=== PATIENT | male | born 1955 | race African-American/Black ===

== ENCOUNTER 2017-12-20 08:51 | Inpatient (IN) ==
--- NOTE | 2017-12-20 09:09 | ED ---
HPI General Chief Complaint: Chest Pain Stated Complaint: cardiac complaint Time Seen by Provider: 12/20/17 09:01 Source: patient Mode of arrival: ambulatory Limitations: no limitations History of Present Illness HPI narrative: 62-year-old male patient with history of hypertension, diabetes, CAD, cocaine use, presents to the ER today because he states that he has been using cocaine with marijuana and started having chest pain since yesterday. He was seen at the [facility], was given aspirin and nitroglycerin was given by EMS. He states the pain is now an 8 out of 10. He also complains of some shortness of breath. He denies any fevers, vomiting, or other symptoms. Related Data Home Medications Medication Instructions Recorded Confirmed atorvastatin 40 mg PO DAILY 12/20/17 12/20/17 lisinopril 10 mg PO DAILY 12/20/17 12/20/17 nifedipine 60 mg PO DAILY 12/20/17 12/20/17 quetiapine [Seroquel] 200 mg PO HS 12/20/17 12/20/17 Allergies Allergy/AdvReac Type Severity Reaction Status Date / Time No Known Allergies Allergy Verified 12/20/17 09:02 Review of Systems ROS: all other systems reviewed are negative PMFSH History History Provided By: Patient Medical History Medical History Bipolar disorder (Acute) CAD (coronary artery disease) (Acute) Chest pain (Acute) Depression (Acute) GERD (gastroesophageal reflux disease) (Acute) Hypertension (Acute) PTSD (post-traumatic stress disorder) (Acute) Surgical History Surgical History History of cholecystectomy (Acute) Social History Social History Substance History: Active Abuse Smoking Status: Heavy tobacco smoker Tobacco Type: Cigarettes How Often Do You Have a Drink Containing Alcohol: 4 or more times a week Recent Travel in [place] within the Last 8 Weeks: No Recent Out of Country Travel within the Last 8 Weeks: No Exam Narrative Exam Narrative: GENERAL: Well-developed elderly -Irish male patient currently in moderate distress. Awake and oriented x3. SKIN: Focused skin assessment warm/dry. HEAD: Atraumatic. Normocephalic. EYES: Pupils equal and round. No scleral icterus. No injection or drainage. ENT: No nasal bleeding or discharge. Mucous membranes pink and moist. NECK: Trachea midline. No JVD. CARDIOVASCULAR: Regular rate and rhythm. No murmur appreciated. RESPIRATORY: No accessory muscle use. Clear to auscultation. Breath sounds equal bilaterally. GASTROINTESTINAL: Abdomen soft, non-tender, nondistended. Hepatic and splenic margins not palpable. MUSCULOSKELETAL: No obvious deformities. No clubbing. No cyanosis. No edema. NEUROLOGICAL: Awake and alert. No obvious cranial nerve deficits. Motor grossly within normal limits. Normal speech. PSYCHIATRIC: Appropriate mood and affect; insight and judgment normal. Course Initial Documented Vital Signs Temperature 98.7 F 12/20/17 09:00 Pulse Rate 62 12/20/17 09:00 Respiratory Rate 18 12/20/17 09:00 Blood Pressure 182/109 H 12/20/17 09:00 Pulse Oximetry 98 12/20/17 09:00 Last Documented Vital Signs Temperature 98.7 F 12/20/17 09:00 Pulse Rate 66 12/20/17 11:21 Respiratory Rate 18 12/20/17 11:21 Blood Pressure 174/91 H 12/20/17 11:21 Pulse Oximetry 97 12/20/17 11:21 Medical Decision Making MDM Narrative Medical decision making narrative: Patient is fairly hypertensive. He admits to having used cocaine today. And at this point, his EKG is showing ST depressions notable in V3 through V6. He was given aspirin at the [facility] and nitroglycerin has already been given. His lab work and it shows that his troponin is elevated as well. At this point, heparin has been ordered for the patient. However, the patient became fairly upset in the ER and wanted to eat, I had told him that I was trying to get in contact with the gold leaf layer and that he should delay eating until we find out whether the gold leaf layer wants to do a catheterization on him. He decided at that point that he wanted to leave AGAINST MEDICAL ADVICE. He actually left the ER room, and had to sit down in triage because his chest pains had gotten worse. He was brought back into the room, but then started eating a turkey sandwich, despite having been told not to eat yet since this could cause delays in his care. At this point, case was discussed with Dr. mcarthur who states that he would treat him with heparin and manage the patient medically. The plan at this point would be to admit the patient for further treatment of his NC. Case is discussed with family practice resident service for admission. Medical Screen Exam Complete: Yes Emergency Medical Condition: Yes Differential Diagnosis Differential Diagnosis: ACS versus dysrhythmias versus hypertensive urgency versus cocaine chest pain Lab Data Lab results reviewed: Yes I reviewed the patient's lab results. Result diagrams: 12/20/17 09:15 12/20/17 09:15 Lab Results 12/20/17 12/20/17 Range/Units 09:15 09:15 WBC 6.0 (4.0-11.0) th/mm3 RBC 5.56 (4.50-5.90) mil/mm3 Hgb 15.3 (13.0-17.0) gm/dL Hct 46.7 (39.0-51.0) % MCV 84.1 (80.0-100.0) fL MCH 27.6 (27.0-34.0) pg MCHC 32.8 (32.0-36.0) % RDW 14.4 (11.6-17.2) % Plt Count 249 (150-450) th/mm3 MPV 8.6 (7.0-11.0) fL Neut % (Auto) 59.1 (16.0-70.0) % Lymph % (Auto) 25.0 (9.0-44.0) % [place] % (Auto) 10.8 H (0.0-8.0) % Eos % (Auto) 4.1 H (0.0-4.0) % Baso % (Auto) 1.0 (0.0-2.0) % Neut # (Auto) 3.5 (1.8-7.7) th/mm3 Lymph # (Auto) 1.5 (1.0-4.8) th/mm3 [place] # (Auto) 0.6 (0.0-0.9) th/mm3 Eos # (Auto) 0.2 (0.0-0.4) th/mm3 Baso # (Auto) 0.1 (0.0-0.2) th/mm3 WBC Differential . Differential Comment Auto diff final Sodium 143 (136-145) meq/L Potassium 4.0 (3.5-5.1) meq/L Chloride 108 H (98-107) meq/L Carbon Dioxide 29.4 (21.0-32.0) meq/L Anion Gap 6 (5-15) meq/L BUN 9 (7-18) mg/dL Creatinine 1.09 (0.60-1.30) mg/dL Estimated GFR 69 L (>89) mL/min Random Glucose 95 (74-106) mg/dL Calcium 8.5 (8.5-10.1) mg/dL Total Bilirubin 0.3 (0.2-1.0) mg/dL AST 26 (15-37) U/L ALT 27 (12-78) U/L Alkaline Phosphatase 79 (45-117) U/L Troponin I 1.79 H* (0.02-0.05) ng/mL Total Protein 7.0 (6.4-8.2) g/dL Albumin 3.2 L (3.4-5.0) g/dL Imaging Data Attestation: I personally reviewed and interpreted this imaging study as follows : Radiologist's impression: Chest X-Ray 12/20/17 09:03 CONCLUSION: Negative examination. Discharge Plan Discharge Disposition Patient Disposition: 30 Still Patient Discharge Condition Condition: Stable Discharge Details Anticipated Discharge Date: 12/20/17 Diagnosis: Non-ST elevated myocardial infarction (non-STEMI) Physicians Team ED Provider: Robert Rodriguez Rxs /Orders / Referrals /Forms Prescriptions: No Action atorvastatin 40 mg Tablet 40 mg PO DAILY RF: 0 quetiapine [Seroquel] 200 mg Tablet 200 mg PO HS RF: 0 lisinopril 10 mg Tablet 10 mg PO DAILY RF: 0 nifedipine 60 mg Tablet Extended Release 60 mg PO DAILY RF: 0 Discharge Instructions Patient Printed Instructions: Chest Pain (ED) Status ED Status: With Doctor
[2017-12-20 09:38] LABS: Baso # (Auto) 0.1 th/mm3 (0.0-0.2); Eos # (Auto) 0.2 th/mm3 (0.0-0.4); Eos % (Auto) 4.1 % (0.0-4.0); Hematocrit 46.7 % (39.0-51.0); Hemoglobin 15.3 gm/dL (13.0-17.0); Lymph # (Auto) 1.5 th/mm3 (1.0-4.8); Mean Corpuscular HGB Conc 32.8 % (32.0-36.0); Mean Corpuscular Hemoglobin 27.6 pg (27.0-34.0); Mean Corpuscular Volume 84.1 fL (80.0-100.0); Mean Platelet Volume 8.6 fL (7.0-11.0); Mono # (Auto) 0.6 th/mm3 (0.0-0.9); Mono % (Auto) 10.8 % (0.0-8.0); Neut # (Auto) 3.5 th/mm3 (1.8-7.7); Neut % (Auto) 59.1 % (16.0-70.0); Platelet Count 249 th/mm3 (150-450); Red Blood Count 5.56 mil/mm3 (4.50-5.90); Red Cell Distribution Width 14.4 % (11.6-17.2)
--- NOTE | 2017-12-20 09:44 | XR ---
EXAM DATE: 12/20/2017 9:30 AM EST AGE/SEX: 62 years / Male INDICATIONS: Chest pain. CLINICAL DATA: This is the patient's initial encounter. Patient reports that signs and symptoms have been present for 1 day and indicates a pain score of 6/10. MEDICAL/SURGICAL HISTORY: Chronic obstructive pulmonary disease. Myocardial infarction. None. COMPARISON: No prior exams available for comparison. FINDINGS: A single AP view of the chest demonstrates the lungs to be symmetrically aerated without evidence of mass, infiltrate or effusion. The cardiomediastinal contours are unremarkable. Osseous structures a re intact. CONCLUSION: Negative examination. Electronically signed by: Elmer Raymond MD 12/20/2017 9:42 AM EST
[2017-12-20 09:57] LABS: Alanine Aminotransferase 27 U/L (12-78)
[2017-12-20 10:07] LABS: Albumin 3.2 g/dL (3.4-5.0); Alkaline Phosphatase 79 U/L (45-117); Anion Gap 6 meq/L (5-15); Aspartate Aminotransferase 26 U/L (15-37); Blood Urea Nitrogen 9 mg/dL (7-18); Calcium 8.5 mg/dL (8.5-10.1); Carbon Dioxide 29.4 meq/L (21.0-32.0); Chloride 108 meq/L (98-107); Glomerular Filtration Rate 69 mL/min (>89); Glucose,Random 95 mg/dL (74-106); Sodium 143 meq/L (136-145)
[2017-12-20 10:10] LABS: Troponin I 1.79 ng/mL (0.02-0.05)
[2017-12-20] MEDS ORDERED: Heparin 10,000 UNITS/10 ML Vial (for IV use) IV.PUSH STA (10:28)
[2017-12-20 12:02] LABS: INR 1.1 Ratio
[2017-12-20] MEDS: LORazepam 1 MG Tablet PO SCH ×2 (12:42→23:08)
[2017-12-20] MEDS: Heparin Drip 25,000 UNIT/250 ML BAG IV.CONT PRN (12:43)
[2017-12-20] MEDS: Lisinopril 10 MG Tablet PO SCH (12:43)
--- NOTE | 2017-12-20 13:53 | P.HPFP ---
History of Present Illness Primary Care Physician: Physician [facility] <Marc Wong L - 12/21/17 22:41> [facility]ician [facility] <Angelic Blackwell - 12/20/17 19:13> Chief Complaint: Chest Pain <Jaquan Blackwelloscar Vigil - 12/20/17 19:13> History of Present Illness: 62 year old male PMH drug use (alcohol, cocaine, THC ), CAD, HTN, bipolar, PTSD presents with chest pain. He said the chest pain started yesterday after drinking alcohol, using marijuana, and using cocaine. He said the chest pain was pressure under both breasts that would come and go lasting hours at a time. He noticed the pain increasing when he participated in sexual intercourse. Chest pain continued throughout the evening. He described the chest pain as a pressure that radiated into his neck and shoulder. He had some shortness of breath and nausea. He went to the DC was given aspirin and nitroglycerin and then transported here by EMS today. He has had chest pain in the past 3 years ago when he had an KS but no procedures were done. He denies any vomiting or fevers. Current chest pain 8 out of 10. Noticed increased sweating. He uses cocaine regularly drinks a quart of beer daily as well as wine and vodka. He smokes 5 cigarettes a day and uses marijuana regularly. He used to do acid, heroin, PCP, purple haze but denies using any of these at this time. He said last time he used heroin was 6 months ago. He is living in his car. He is sexually active with multiple partners and does not use condoms. He has had chlamydia and herpes in the past. He recently was tested for HIV and was negative. Past medical history: KS 3 years ago, hypertension, CAD, GERD, bipolar, PTSD, cocaine use, alcohol use Surgical history: Cholecystectomy Family medical history: None Allergies: None Medications: Nifedipine 60 mg, lisinopril 10 mg, atorvastatin 40 mg, Seroquel 200 mg (patient says he does not take these medications every day but takes them intermittently) ED consult to cardiology who diagnosed patient with an NSTEMI and started on heparin. Patient went to sign AMA papers because he wanted to eat food, left to get a turkey sandwich, and then returned. Cardiology recommended medical management and no procedure at this time given cocaine history and patient noncompliance. At 4 PM today patient was complaining of increased chest pain 5 out of 10 and increasing shortness of breath. Medical team went to bedside to reassess patient. He said at some point he thinks he was told he had COPD. He said his chest pain is continued but decreased now a 5 out of 10 but his shortness of breath has increased he is stating on 4 L nasal cannula at 98%. Repeat EKG was unchanged from admission showing ST depressions and aVL V3 through V6. ABG troponin and chest x-ray were ordered. Duo nebs were administered and patient' s shortness of breath improved patient was having conversations and laughing with nursing staff. <Angelic Blackwell - 12/20/17 19:58> - Diagnosis (1) Non-ST elevated myocardial infarction (non-STEMI) (2) Drowsiness (3) Shortness of breath (4) Hypertension (5) Bipolar 1 disorder (6) Substance abuse (7) Nutrition, metabolism, and development symptoms <Marc Wong - 12/21/17 22:41> (1) Non-ST elevated myocardial infarction (non-STEMI) (2) Shortness of breath (3) Hypertension (4) Bipolar 1 disorder (5) Substance abuse (6) Nutrition, metabolism, and development symptoms <Angelic Blackwell - 12/20/17 19:32> Inpatient Certification: I certify that the inpatient services were ordered in accordance with Medicare regulations governing the order. This includes certification that hospital inpatient services are reasonable and necessary and in the case of services not specified as inpatient-only under 42 CFR 419.22(n), that they are appropriately provided as inpatient services in accordance to with the 2-midnight benchmark under 43 CFR 412.3(e) <Marc Wong - 12/21/17 22:41> I certify that the inpatient services were ordered in accordance with Medicare regulations governing the order. This includes certification that hospital inpatient services are reasonable and necessary and in the case of services not specified as inpatient-only under 42 CFR 419.22(n), that they are appropriately provided as inpatient services in accordance to with the 2-midnight benchmark under 43 CFR 412.3(e) <Angelic Blackwell - 12/20/17 13:53> Estimated Total Length of Stay (Days): 3 <Angelic Blackwell 12/20/17 13:53> Plans for Post Hospital Care: Home <Angelic Blackwell 12/20/17 13:53> Review of Systems Constitutional: Reports chills, Reports fatigue, Denies fever(s) <Angelic Blackwell 12/20/17 17:28> Eyes: Denies change in vision <Angelic Blackwell 12/20/17 17:28> Ears, Nose, Mouth, and Throat: Denies sore throat <RishiAngelic Vigil 12/20/17 17:28> Cardiovascular: Reports chest pain, Reports leg swelling, Reports radiating jaw , neck or arm pain, Reports shortness of breath, Reports shortness of breath with activity, Denies rapid, pounding, or irregular heartbeat <RishiAngelic Vigil Ihsan 12/20/17 17:28> Respiratory: Reports shortness of breath <Angelic Blackwell Ihsan 12/20/17 17:28> Gastrointestinal: Reports nausea, Denies loose stools, Denies vomiting <Rishi Angelic Vigil Ihsan 12/20/17 17:28> Genitourinary: Reports erectile dysfunction, Denies urinary frequency <Angelic Blackwell 12/20/17 17:28> Musculoskeletal: Denies body aches <Angelic Blackwell 12/20/17 17:28> Skin/Breast: Denies rash <RishiAngelic Musa 12/20/17 17:28> Neurologic: Denies loss of vision <Angelic Blackwell 12/20/17 17:28> Psychiatric: Reports anxiety, Denies thoughts of hurting/killing yourself < RishiAngelic Musa 12/20/17 17:28> Endocrine: Reports excessive sweating <Angelic Blackwell 12/20/17 17:28> Hematologic/Lymphatic: Denies easy bleeding <RishiAngelic Musa 12/20/17 17:28> Allergic/Immunologic: Denies hives <RishiAngelic 12/20/17 17:28> PMFSH - History History Provided By: Patient <Angelic Blackwell Ihsan 12/20/17 13:53> - Medical History Medical History: Medical History (Last Reviewed 12/20/17 @ 09:08 by Robert Rodriguez MD) Bipolar disorder CAD (coronary artery disease) Chest pain Depression GERD (gastroesophageal reflux disease) Hypertension PTSD (post-traumatic stress disorder) <Marc Wong - 12/21/17 22:41> Medical History (Last Reviewed 12/20/17 @ 09:08 by Robert Rodriguez MD) Bipolar disorder CAD (coronary artery disease) Chest pain Depression GERD (gastroesophageal reflux disease) Hypertension PTSD (post-traumatic stress disorder) <Angelic Blackwell 12/20/17 13:53> - Surgical History Surgical History: Surgical History (Last Reviewed 12/20/17 @ 09:08 by Robert Rodriguez MD) History of cholecystectomy <Marc Wong - 12/21/17 22:41> Surgical History (Last Reviewed 12/20/17 @ 09:08 by Robert Rodriguez MD) History of cholecystectomy <Angelic Blackwell 12/20/17 13:53> - Tobacco History Tobacco Use In Past 30 Days: Yes <Angelic Blackwell 12/20/17 13:53> Smoking Status: Heavy tobacco smoker <Angelic Blackwell 12/20/17 13:53> Tobacco Type: Cigarettes <Angelic Blackwell 12/20/17 13:53> - Alcohol History How Often Do You Have a Drink Containing Alcohol: 4 or more times a week < Angelic Blackwell 12/20/17 13:53> - Substance Use History Substance History: Active Abuse <Angelic Blackwell 12/20/17 13:53> - Substance Use Type Crack/Cocaine Status: Active <Angelic Blackwell 12/20/17 13:53> Route Used: Inhalation <Angelic Blackwell 12/20/17 13:53> Frequency: daily <Angelic Blackwell 12/20/17 13:53> Marijuana Status: Active <Angelic Blackwell 12/20/17 13:53> Route Used: By Mouth <Angelic Blackwell 12/20/17 13:53> Frequency: daily <Angelic Blackwell 12/20/17 13:53> - Travel History Recent Travel in the [place] Within the Last 8 Weeks: No <Angelic Blackwell 13:53> Recent Travel Out of the Country Within the Last 8 Weeks: No <Angelic Blackwell 12/20/17 13:53> - Immunization History Tetanus Immunization: Unsure <RishiAngelic Vigil - 12/20/17 13:53> Medications and Allergies Allergies Allergy/AdvReac Type Severity Reaction Status Date / Time No Known Allergies Allergy Verified 12/20/17 09:02 <Marc Wong - 12/21/17 22:41> Home Medications Medication Instructions Recorded Confirmed Type atorvastatin 40 mg PO DAILY 12/20/17 12/20/17 History lisinopril 10 mg PO DAILY 12/20/17 12/20/17 History nifedipine 60 mg PO DAILY 12/20/17 12/20/17 History quetiapine [Seroquel] 200 mg PO HS 12/20/17 12/20/17 History <Marc Wong - 12/21/17 22:41> Active Medications: Active Medications Al Hydroxide/Mg Hydroxide (Milk Of Ketty Liq) 30 ml PO Q12H PRN PRN Reason: Mild Constipation Albuterol (Duoneb Neb ([facility])) 1 ampul NEB Q4HR NEB [facility] Last Admin: 12/21/17 15:39 Dose: 1 ampul Aspirin (Aspirin Chew) 81 mg PO DAILY [facility] Last Admin: 12/21/17 08:23 Dose: 81 mg Atorvastatin Calcium (Lipitor) 80 mg PO DAILY [facility] Last Admin: 12/21/17 08:22 Dose: 80 mg Clonidine HCl (Catapres) 0.1 mg PO Q6H PRN PRN Reason: SEE LABEL COMMENTS Last Admin: 12/21/17 10:21 Dose: 0.1 mg Flumazenil (Romazecon Inj) 0.2 mg IV.PUSH Q1M PRN PRN Reason: OVERSEDATION Heparin Sodium/Dextrose (Heparin/D5w 25,000 U/250 Ml) 25,000 unit in 250 mls @ 0 mls/hr IV.CONT TITRATE PRN; Protocol PRN Reason: Per Protocol Last Admin: 12/21/17 13:33 Dose: 1,200 units/hr, 12 mls/hr Lisinopril (Prinivil) 10 mg PO DAILY [facility] Last Admin: 12/21/17 08:23 Dose: 10 mg Morphine Sulfate (Morphine Inj) 2 mg IV.PUSH Q4H PRN PRN Reason: PAIN SCALE 1 TO 10 Nifedipine (Procardia Xl) 60 mg PO DAILY [facility] Last Admin: 12/21/17 08:23 Dose: 60 mg Nitroglycerin (Nitrostat Sl) 0.4 mg SL Q4HR PRN PRN Reason: CHEST PAIN Potassium Chloride (K-Dur) 20 meq PO BID [facility] Last Admin: 12/21/17 08:23 Dose: 20 meq Senna/Docusate Sodium (Kiesha-Colace) 1 tab PO BID [facility] Last Admin: 12/21/17 08:24 Dose: Not Given Sodium Chloride (Ns Flush) 2 ml IV.FLUSH BID [facility] Last Admin: 12/21/17 08:23 Dose: 2 ml Sodium Chloride (Ns Flush) 2 ml IV.FLUSH PRN PRN PRN Reason: FLUSH AFTER USING IV ACCESS Ticagrelor (Brilinta) 90 mg PO BID [facility] <Marc Wong L - 12/21/17 22:41> Active Medications Al Hydroxide/Mg Hydroxide (Milk Of Magnerich Liq) 30 ml PO Q12H PRN PRN Reason: Mild Constipation Aspirin (Aspirin Chew) 81 mg PO DAILY [facility] Atorvastatin Calcium (Lipitor) 80 mg PO DAILY [facility] Heparin Sodium/Dextrose (Heparin/D5w 25,000 U/250 Ml) 25,000 unit in 250 mls @ 0 mls/hr IV.CONT TITRATE PRN; Protocol PRN Reason: Per Protocol Last Admin: 12/20/17 12:43 Dose: 1,000 units/hr, 10 mls/hr Lisinopril (Prinivil) 10 mg PO DAILY [facility] Last Admin: 12/20/17 12:43 Dose: 10 mg Lorazepam (Ativan) 1 mg PO Q6H [facility] Last Admin: 12/20/17 12:42 Dose: 1 mg Lorazepam (Ativan) 1 mg PO Q4HR PRN PRN Reason: Acute Pain 1-10 Nifedipine (Procardia Xl) 60 mg PO DAILY [facility] Nitroglycerin (Nitro-Bid 2% Oint) 1 inch TOPICAL Q6HR [facility] Quetiapine Fumarate (Seroquel) 200 mg PO HS [facility] Senna/Docusate Sodium (Kiesha-Colace) 1 tab PO BID [facility] Sennosides (Senokot) 17.2 mg PO Q12H PRN PRN Reason: Moderate Constipation Sodium Chloride (Ns Flush) 2 ml IV.FLUSH UNSCH PRN PRN Reason: FLUSH AFTER USING IV ACCESS Ticagrelor (Brilinta) 90 mg PO BID [facility] <Angelic Blackwell C - 12/20/17 13:53> Exam Vital signs: Vital Signs 12/21/17 00:00 12/21/17 00:48 12/21/17 04:00 Temperature 98.0 F 97.8 F Pulse Rate 62 61 55 L Respiratory Rate 25 H 18 27 H Blood Pressure 146/97 H 119/79 Pulse Oximetry 12/21/17 05:02 12/21/17 08:00 12/21/17 08:07 Temperature 98.1 F Pulse Rate 59 L 63 63 Respiratory Rate 18 33 H 16 Blood Pressure 155/102 H Pulse Oximetry 96 12/21/17 09:00 12/21/17 12:00 12/21/17 15:39 Temperature 98.6 F Pulse Rate 63 63 75 Respiratory Rate 30 H 16 Blood Pressure 133/75 Pulse Oximetry 95 12/21/17 16:00 12/21/17 17:00 12/21/17 18:00 Temperature 98.6 F Pulse Rate 70 82 60 Respiratory Rate 18 Blood Pressure 158/70 H Pulse Oximetry 96 12/21/17 19:00 Temperature Pulse Rate 84 Respiratory Rate 20 Blood Pressure Pulse Oximetry Intake & Output 12/21/17 12/21/17 12/22/17 06:59 18:59 06:59 Intake Total 480 / 480 250 / 250 Output Total 800 / 800 Balance -320 / -320 250 / 250 Weight 118.5 kg Intake: IV 250 / 250 Heparin/D5W 25,000 U/250 mL 25, 250 / 250 000 unit In 250 ml @ Per Protocol IV.CONT TITRATE PRN Rx #:[id number] Oral 480 / 480 Output: Urine 800 / 800 Other: # Voids 4 <Marc Wong L - 12/21/17 22:41> Vital Signs 12/20/17 09:00 12/20/17 09:02 12/20/17 09:05 Temperature 98.7 F Pulse Rate 62 66 Respiratory Rate 18 18 Blood Pressure 182/109 H 170/100 H Pulse Oximetry 98 97 96 12/20/17 09:06 12/20/17 11:21 Temperature Pulse Rate 62 66 Respiratory Rate 18 Blood Pressure 174/91 H Pulse Oximetry 96 97 Intake & Output 12/19/17 12/20/17 12/20/17 18:59 06:59 18:59 Weight 117.934 kg <Angelic Blackwell C - 12/20/17 13:53> Narrative: GENERAL: SKIN: Warm and dry. HEAD: Atraumatic. Normocephalic. EYES: Pupils equal and round. No scleral icterus. No injection or drainage. ENT: No nasal bleeding or discharge. Mucous membranes pink and moist. Teeth discolored and extensive plaque. No erythema of throat. NECK: Trachea midline. No JVD. CARDIOVASCULAR: Bradycardic. Normal rhythm. Chest not tender to palpation RESPIRATORY: No accessory muscle use. Clear to auscultation. Breath sounds equal bilaterally. Patient on 2 L of nasal cannula at 98% GASTROINTESTINAL: Abdomen soft, non-tender, nondistended. Hepatic and splenic margins not palpable. MUSCULOSKELETAL: Extremities without clubbing, cyanosis, or edema. No obvious deformities. NEUROLOGICAL: Awake and alert. No obvious cranial nerve deficits. Motor grossly within normal limits. Five out of 5 muscle strength in the arms and legs. Normal speech. PSYCHIATRIC: Appropriate mood and affect; insight and judgment normal. Tangential speech. Somewhat pressured. <Angelic Blackwell C - 12/20/17 19:58> Results - Labs Result diagrams: 12/21/17 04:19 12/21/17 04:19 <Marc Wong - 12/21/17 22:41> Abnormal lab results 12/20/17 12/21/17 12/21/17 Range/Units 23:30 04:19 04:19 MCH 26.9 L (27.0-34.0) pg MCHC 31.8 L (32.0-36.0) % Lynn % (Auto) 10.8 H (0.0-8.0) % APTT (23.4-31.7) sec Potassium 3.4 L (3.5-5.1) meq/L Troponin I 1.77 H* (0.02-0.05) ng/mL Urine Cocaine Screen Pos H (Neg) 12/21/17 12/21/17 12/21/17 Range/Units 04:19 12:34 19:32 MCH (27.0-34.0) pg MCHC (32.0-36.0) % Lynn % (Auto) (0.0-8.0) % APTT 39.2 H 36.1 H 33.3 H (23.4-31.7) sec Potassium (3.5-5.1) meq/L Troponin I (0.02-0.05) ng/mL Urine Cocaine Screen (Neg) Short CBC 12/21/17 Range/Units 04:19 WBC 5.2 (4.0-11.0) th/mm3 Hgb 15.2 (13.0-17.0) gm/dL Hct 47.8 (39.0-51.0) % Plt Count 233 (150-450) th/mm3 BMP 12/21/17 04:19 Sodium 144 Potassium 3.4 L Chloride 107 Carbon Dioxide 30.3 BUN 10 Creatinine 0.98 Calcium 8.8 Cardiac Enzymes 12/21/17 Range/Units 04:19 Troponin I 1.77 H* (0.02-0.05) ng/mL <Young,Marc L - 12/21/17 22:41> Abnormal lab results 12/20/17 12/20/17 Range/Units 09:15 09:15 Lynn % (Auto) 10.8 H (0.0-8.0) % Eos % (Auto) 4.1 H (0.0-4.0) % Chloride 108 H (98-107) meq/L Estimated GFR 69 L (>89) mL/min Troponin I 1.79 H* (0.02-0.05) ng/mL Albumin 3.2 L (3.4-5.0) g/dL Short CBC 12/20/17 Range/Units 09:15 WBC 6.0 (4.0-11.0) th/mm3 Hgb 15.3 (13.0-17.0) gm/dL Hct 46.7 (39.0-51.0) % Plt Count 249 (150-450) th/mm3 BMP 12/20/17 09:15 Sodium 143 Potassium 4.0 Chloride 108 H Carbon Dioxide 29.4 BUN 9 Creatinine 1.09 Calcium 8.5 Cardiac Enzymes 12/20/17 Range/Units 09:15 Troponin I 1.79 H* (0.02-0.05) ng/mL Liver Function 12/20/17 Range/Units 09:15 Total Bilirubin 0.3 (0.2-1.0) mg/dL AST 26 (15-37) U/L ALT 27 (12-78) U/L Alkaline Phosphatase 79 (45-117) U/L Albumin 3.2 L (3.4-5.0) g/dL <Angelic Blackwell - 12/20/17 13:53> - Imaging Impressions Chest X-Ray 12/20/17 09:03 CONCLUSION: Negative examination. <Angelic Blackwell - 12/20/17 13:53> Caprini VTE Risk Assessment Caprini VTE Risk Assessment: No/Low Risk (score <= 1) <Angelic Blackwell - 12/20 17:28> Caprini Risk Assessment Model: Point Value = 1 Point Value = 2 Point Value = 3 Point Value = 5 Age 41-60 Minor surgery BMI > 25 kg/m2 Swollen legs Varicose veins or History of unexplained or recurrent spontaneous Oral contraceptives or hormone replacement Sepsis (< 1 month) Serious lung disease, including pneumonia (< 1 month) Abnormal pulmonary function Acute myocardial infarction Congestive heart failure (< 1 month) History of inflammatory bowel disease Medical patient at bed rest Age 61-74 Arthroscopic surgery Major open surgery (> 45 min) Laparoscopic surgery (> 45 min) Malignancy Confined to bed (> 72 hours) Immobilizing plaster cast Central venous access Age >= 75 History of VTE Family history of VTE Factor V Leiden Prothrombin [id number] Lupus anticoagulant Anticardiolipin antibodies Elevated serum homocysteine Heparin-induced thrombocytopenia Other congenital or acquired thrombophilia Stroke (< 1 month) Elective arthroplasty Hip, pelvis, or leg fracture Acute spinal cord injury (< 1 month) <Marc Wong - 12/21/17 22:41> Point Value = 1 Point Value = 2 Point Value = 3 Point Value = 5 Age 41-60 Minor surgery BMI > 25 kg/m2 Swollen legs Varicose veins or History of unexplained or recurrent spontaneous Oral contraceptives or hormone replacement Sepsis (< 1 month) Serious lung disease, including pneumonia (< 1 month) Abnormal pulmonary function Acute myocardial infarction Congestive heart failure (< 1 month) History of inflammatory bowel disease Medical patient at bed rest Age 61-74 Arthroscopic surgery Major open surgery (> 45 min) Laparoscopic surgery (> 45 min) Malignancy Confined to bed (> 72 hours) Immobilizing plaster cast Central venous access Age >= 75 History of VTE Family history of VTE Factor V Leiden Prothrombin [id number] Lupus anticoagulant Anticardiolipin antibodies Elevated serum homocysteine Heparin-induced thrombocytopenia Other congenital or acquired thrombophilia Stroke (< 1 month) Elective arthroplasty Hip, pelvis, or leg fracture Acute spinal cord injury (< 1 month) <Angelic Blackwell C - 12/20/17 13:53> Prophylaxis Regimen: Total Risk Factor Score Risk Level Prophylaxis Regimen 0-1 Low Early ambulation 2 Moderate Order ONE of the following: *Sequential Compression Device (SCD) *Heparin 5000 units SQ BID 3-4 Higher Order ONE of the following medications: *Heparin 5000 units SQ TID *Enoxaparin/Lovenox 40 mg SQ daily (WT < 150 kg, CrCl > 30 mL/min) *Enoxaparin/Lovenox 30 mg SQ daily (WT < 150 kg, CrCl > 10-29 mL/min) *Enoxaparin/Lovenox 30 mg SQ BID (WT < 150 kg, CrCl > 30 mL/min) AND/OR *Sequential Compression Device (SCD) 5 or more Highest Order ONE of the following medications: *Heparin 5000 units SQ TID (Preferred with Epidurals) *Enoxaparin/Lovenox 40 mg SQ daily (WT < 150 kg, CrCl > 30 mL/min) *Enoxaparin/Lovenox 30 mg SQ daily (WT < 150 kg, CrCl > 10-29 mL/min) *Enoxaparin/Lovenox 30 mg SQ BID (WT < 150 kg, CrCl > 30 mL/min) AND *Sequential Compression Device (SCD) <Marc Wong - 12/21/17 22:41> Total Risk Factor Score Risk Level Prophylaxis Regimen 0-1 Low Early ambulation 2 Moderate Order ONE of the following: *Sequential Compression Device (SCD) *Heparin 5000 units SQ BID 3-4 Higher Order ONE of the following medications: *Heparin 5000 units SQ TID *Enoxaparin/Lovenox 40 mg SQ daily (WT < 150 kg, CrCl > 30 mL/min) *Enoxaparin/Lovenox 30 mg SQ daily (WT < 150 kg, CrCl > 10-29 mL/min) *Enoxaparin/Lovenox 30 mg SQ BID (WT < 150 kg, CrCl > 30 mL/min) AND/OR *Sequential Compression Device (SCD) 5 or more Highest Order ONE of the following medications: *Heparin 5000 units SQ TID (Preferred with Epidurals) *Enoxaparin/Lovenox 40 mg SQ daily (WT < 150 kg, CrCl > 30 mL/min) *Enoxaparin/Lovenox 30 mg SQ daily (WT < 150 kg, CrCl > 10-29 mL/min) *Enoxaparin/Lovenox 30 mg SQ BID (WT < 150 kg, CrCl > 30 mL/min) AND *Sequential Compression Device (SCD) <Angelic Blackwell - 12/20/17 13:53> Assessment and Plan - Assessment (1) Non-ST elevated myocardial infarction (non-STEMI) Code(s): I21.4 - Non-ST elevation (NSTEMI) myocardial infarction Status: Acute (2) Drowsiness Code(s): R40.0 - Somnolence Status: Acute (3) Shortness of breath Code(s): R06.02 - Shortness of breath Status: Resolved (4) Hypertension Code(s): I10 - Essential (primary) hypertension Status: Chronic (5) Bipolar 1 disorder Code(s): F31.9 - Bipolar disorder, unspecified Status: Chronic (6) Substance abuse Code(s): F19.10 - Other psychoactive substance abuse, uncomplicated Status: Chronic (7) Nutrition, metabolism, and development symptoms Code(s): R63.8 - Other symptoms and signs concerning food and fluid intake Status: Acute <Marc Wong - 12/21/17 22:41> (1) Non-ST elevated myocardial infarction (non-STEMI) Code(s): I21.4 - Non-ST elevation (NSTEMI) myocardial infarction Status: Acute Plan: Chest pain 8 out of 10 radiating to neck and shoulder with diaphoresis and nausea. EKG showed LVH, possible septal old KS, ST depressions in aVL, V3 through V6. Troponin I 0.79. Repeat troponin I 0.91. Repeat EKG showed no changes. -Admit to inpatient for non-STEMI Cardiology consult: Dr. Becerril said given patient's cocaine and noncompliance as well as initial labs and EKG no intervention at this time and medical management with heparin. -Heparin drip, 81 aspirin, ticagrelor 180 and then continue 90 mg daily -Morphine 2 mg every 4 as needed Ativan 1 mg every 6 hours scheduled and 1 mg q. 4 as needed for pain and anxiety -Nitroglycerin sublingual 0.4 every 4 hours as needed chest pain -Continuous pulse ox -Increased home atorvastatin from 40mg to 80 mg -Repeat EKG and troponin -Cardiac echo (2) Shortness of breath Code(s): R06.02 - Shortness of breath Status: Acute Plan: Shortness of breath on admission. Later in the afternoon increasing shortness of breath. Patient thinks he may have had COPD diagnosis. DDX non-STEMI, COPD , pneumonia -DuoNeb treatment, and duo nebs every 4 hours -Continuous pulse ox and oxygen titration ABG pH 7.47 PCO2 39 P02 110 HC03 28 -Repeat chest x-ray (3) Hypertension Code(s): I10 - Essential (primary) hypertension Status: Acute Plan: Patient is pressure 170/100. Continue pressures 201/130. -Continue on home lisinopril 10 mg and nifedipine 60 mg -Nitroprusside drip: Do not administer if pressures less than 160/80s (4) Bipolar 1 disorder Code(s): F31.9 - Bipolar disorder, unspecified Status: Acute Plan: Takes home Seroquel 200 mg. -EKG QT interval hold home medication at this time (5) Substance abuse Code(s): F19.10 - Other psychoactive substance abuse, uncomplicated Status: Acute Plan: known alcohol cocaine and marijuana use -Urine drug screen -Case management referral (6) Nutrition, metabolism, and development symptoms Code(s): R63.8 - Other symptoms and signs concerning food and fluid intake Status: Acute Plan: Diet: NPO in case procedure Electrolytes: monitor and replete DVT: Heparin Discussed with Dr. Noble and Dr. Wong <Angelic Blackwell - 12/20/17 19:32> - Assessment and Plan 62 year old male H drug use (alcohol, cocaine, THC), CAD, HTN, bipolar, PTSD presents with chest pain. Pain started after using alcohol, cocaine, and marijuana the previous day. Pain increased with sexual activity and did not stop. Went to DC received aspirin nitroglycerin and was transferred by EMS to [place]. EKG showed ST depressions in aVL V3 to V6 and possible old septal KS as well as left ventricular hypertrophy. roponin I 0.79. Repeat troponin I 0.91. Patient had increasing shortness of breath. Repeat EKG showed no changes. Chest x-ray normal. Cardiology consult: Dr. Becerril said given patient 's cocaine and noncompliance as well as initial labs and EKG no intervention at this time and medical management with heparin. Started on heparin drip, 81 aspirin, ticagrelor 180 and then continue 90 mg daily. Pain controlled with morphine 2 mg every 4 as needed and ativan 1 mg every 6 hours scheduled and 1 mg q. 4 as well as nitroglycerin sublingual 0.4 every 4 hours. Increased home atorvastatin from 40mg to 80 mg. Blood pressures were elevated in the 200s/ 100s so patient was started on a nitroprusside drip. Cardiac echo ordered and as well as repeat troponin and EKG. Scheduled duo nebs for shortness of breath. <Angelic Blackwell - 12/20/17 19:58> - Attending Attestation The exam, history, and the medical decision-making described in the above note were completed with the assistance of the resident physician. I reviewed and agree with the findings presented. I attest that I had a [id number] encounter with the patient on the same day, and personally performed and documented my assessment and findings in the medical record. Patient is a 62 year old male who presents with cocaine induced NSTEMI. Will admit for serial EKGs, troponin levels, aspirin, statin, ticagrelor, heparin drip, morphine, ativan, cardiology consultation. Will avoid beta pete use given cocaine use. <Marc Wong - 12/21/17 22:41>
--- NOTE | 2017-12-20 16:01 | P.CONCA ---
History of Present Illness Service: Cardiology Consult date: 12/20/17 Requesting Physician: Angelic Blackwell Reason for Consult: Chest pain, NSTEMI Primary Care Provider: [facility] History of Present Illness: This is a 62-year-old male with a past medical history of hypertension, diabetes, CAD, PTSD, Bipolar disorder, depression, heart attack and cocaine use. He presented to the Emergency Department today with complaints of chest pain 8/10 with SOB, for the last 3 days. [facility] and nitro and called EMS. He was transported by EMS to the Emergency Department for further evaluation. He stated that he left earlier AMA but had to return shortly due to his chest pain getting worse. He currently he very sleepy due to receiving Ativan, he does wake up and answer questions appropriately. He currently denies palpitations, dizziness, pressure, edema or SOB. He does complain of chest pain without radiation. Review of Systems All other systems reviewed negative except as stated in HPI PMF - History History Provided By: Patient - Medical History Medical History: Medical History (Last Reviewed 12/20/17 @ 09:08 by Robert Rodriguez MD) Bipolar disorder CAD (coronary artery disease) Chest pain Depression GERD (gastroesophageal reflux disease) Hypertension PTSD (post-traumatic stress disorder) - Surgical History Surgical History: Surgical History (Last Reviewed 12/20/17 @ 09:08 by Robert Rodriguez MD) History of cholecystectomy - Tobacco History Tobacco Use In Past 30 Days: Yes Smoking Status: Heavy tobacco smoker Tobacco Type: Cigarettes - Alcohol History How Often Do You Have a Drink Containing Alcohol: 4 or more times a week - Substance Use History Substance History: Active Abuse - Substance Use Type Crack/Cocaine Status: Active Route Used: Inhalation Frequency: daily Marijuana Status: Active Route Used: By Mouth Frequency: daily - Travel History Recent Travel in the [place] Within the Last 8 Weeks: No Recent Travel Out of the Country Within the Last 8 Weeks: No - Immunization History Tetanus Immunization: Unsure Medications and Allergies Allergies Allergy/AdvReac Type Severity Reaction Status Date / Time No Known Allergies Allergy Verified 12/20/17 09:02 Home Medications Medication Instructions Recorded Confirmed Type atorvastatin 40 mg PO DAILY 12/20/17 12/20/17 History lisinopril 10 mg PO DAILY 12/20/17 12/20/17 History nifedipine 60 mg PO DAILY 12/20/17 12/20/17 History quetiapine [Seroquel] 200 mg PO HS 12/20/17 12/20/17 History Active Medications: Active Medications Al Hydroxide/Mg Hydroxide (Milk Of Ketty Liq) 30 ml PO Q12H PRN PRN Reason: Mild Constipation Aspirin (Aspirin Chew) 81 mg PO DAILY [facility] Atorvastatin Calcium (Lipitor) 80 mg PO DAILY [facility] Heparin Sodium/Dextrose (Heparin/D5w 25,000 U/250 Ml) 25,000 unit in 250 mls @ 0 mls/hr IV.CONT TITRATE PRN; Protocol PRN Reason: Per Protocol Last Admin: 12/20/17 12:43 Dose: 1,000 units/hr, 10 mls/hr Lisinopril (Prinivil) 10 mg PO DAILY [facility] Last Admin: 12/20/17 12:43 Dose: 10 mg Lorazepam (Ativan) 1 mg PO Q6H [facility] Last Admin: 12/20/17 12:42 Dose: 1 mg Lorazepam (Ativan) 1 mg PO Q4HR PRN PRN Reason: Acute Pain 1-10 Nifedipine (Procardia Xl) 60 mg PO DAILY [facility] Last Admin: 12/20/17 14:00 Dose: 60 mg Nitroglycerin (Nitro-Bid 2% Oint) 1 inch TOPICAL Q6HR [facility] Quetiapine Fumarate (Seroquel) 200 mg PO HS [facility] Senna/Docusate Sodium (Kiesha-Colace) 1 tab PO BID [facility] Sennosides (Senokot) 17.2 mg PO Q12H PRN PRN Reason: Moderate Constipation Sodium Chloride (Ns Flush) 2 ml IV.FLUSH UNSCH PRN PRN Reason: FLUSH AFTER USING IV ACCESS Ticagrelor (Brilinta) 90 mg PO BID [facility] Exam Vital signs: Vital Signs 12/20/17 09:00 12/20/17 09:02 12/20/17 09:05 Temperature 98.7 F Pulse Rate 62 66 Respiratory Rate 18 18 Blood Pressure 182/109 H 170/100 H Pulse Oximetry 98 97 96 12/20/17 09:06 12/20/17 11:21 12/20/17 14:01 Temperature Pulse Rate 62 66 64 Respiratory Rate 18 18 Blood Pressure 174/91 H 207/104 H Pulse Oximetry 96 97 98 11/07/18 14:58 12/20/17 15:32 Temperature Pulse Rate 65 Respiratory Rate 16 Blood Pressure 176/128 H Pulse Oximetry 97 98 Intake & Output 12/19/17 12/20/17 12/20/17 18:59 06:59 18:59 Weight 117.934 kg Results 12/20/17 09:15 12/20/17 16:27 Cardiac Enzymes 12/20/17 Range/Units 09:15 AST 26 (15-37) U/L Troponin I 1.79 H* (0.02-0.05) ng/mL Coagulation 12/20/17 Range/Units 11:10 PT 11.0 (9.8-11.6) sec APTT 31.0 (23.4-31.7) sec CBC 12/20/17 Range/Units 09:15 WBC 6.0 (4.0-11.0) th/mm3 RBC 5.56 (4.50-5.90) mil/mm3 Hgb 15.3 (13.0-17.0) gm/dL Hct 46.7 (39.0-51.0) % Plt Count 249 (150-450) th/mm3 Neut # (Auto) 3.5 (1.8-7.7) th/mm3 Lymph # (Auto) 1.5 (1.0-4.8) th/mm3 [place] # (Auto) 0.6 (0.0-0.9) th/mm3 Eos # (Auto) 0.2 (0.0-0.4) th/mm3 Baso # (Auto) 0.1 (0.0-0.2) th/mm3 Comprehensive Metabolic Panel 12/20/17 Range/Units 09:15 Sodium 143 (136-145) meq/L Potassium 4.0 (3.5-5.1) meq/L Chloride 108 H (98-107) meq/L Carbon Dioxide 29.4 (21.0-32.0) meq/L BUN 9 (7-18) mg/dL Creatinine 1.09 (0.60-1.30) mg/dL Calcium 8.5 (8.5-10.1) mg/dL AST 26 (15-37) U/L ALT 27 (12-78) U/L Alkaline Phosphatase 79 (45-117) U/L Total Protein 7.0 (6.4-8.2) g/dL Albumin 3.2 L (3.4-5.0) g/dL Intake and Output 12/20/17 12/20/17 12/20/17 06:59 14:59 22:59 Other: Weight 117.934 kg Patient Weight 12/21/17 06:59 Weight 117.934 kg - Imaging and Cardiology Imaging: Impressions Chest X-Ray 12/20/17 09:03 CONCLUSION: Negative examination. Assessment and Plan - Assessment (1) Hypertension Code(s): I10 - Essential (primary) hypertension Status: Acute (2) Non-ST elevated myocardial infarction (non-STEMI) Code(s): I21.4 - Non-ST elevation (NSTEMI) myocardial infarction Status: Acute - Plan The patient admits to using cocaine 3 days ago when his chest pain started. We will continue to monitor on telemetry. We will implement aggressive cardiac risk factor modification. Continue medical management. He was strongly encouraged to stop using cocaine. We will continue to monitor him during his hospitalization. The patient was seen and evaluated by Dr. Becerril who participated in care, management and decision making. - Attending Attestation Patient seen and examined. I reviewed and agree with the evaluation and plan as presented. Continue medical management. Monitor on telemetry. He was counseled to stop using cocaine.
[2017-12-20 16:30] LABS: ABG Base Excess 4.6 mmol/L (-2-2); ABG PCO2 39 mmHg (38-42); ABG PO2 110 mmHg (61-120)
[2017-12-20] MEDS: LORazepam 1 MG Tablet PO PRN ×2 (16:37→23:49)
[2017-12-20] MEDS ORDERED: Morphine Sulfate Inj 2 MG/ML Vial IV.PUSH PRN (16:39)
--- NOTE | 2017-12-20 17:11 | ECHRPT ---
Indication: Chest Pain CONCLUSIONS Normal left ventricular size. Severe concentric left ventricular hypertrophy. The left ventricular systolic function is low normal with an estimated ejection fraction in the rang e of 50- 55%. The left atrial size is mildly dilated. There is trace tricuspid valve regurgitation. The estimated pulmonary arterial pressure is 26 mmHg. BP: / HR: Rhythm: MEASUREMENTS (Male / Female) Normal Values Technical Quality:Good 2D ECHO LV Diastolic Diameter PLAX 4.8 cm 4.2 - 5.9 / 3.9 - 5.3 cm LV Systolic Diameter PLAX 3.3 cm IVS Diastolic Thickness 2.0 cm 0.6 - 1.0 / 0.6 - 0.9 cm LVPW Diastolic Thickness 1.8 cm 0.6 - 1.0 / 0.6 - 0.9 cm LV Relative Wall Thickness 0.8 RV Internal Dim ED PLAX 3.0 cm LVOT Diameter 2.4 cm Aortic Root Diameter 3.7 cm LA Systolic Diameter LX 3.9 cm 3.0 - 4.0 / 2.7 - 3.8 cm LV Ejection Fraction MOD 4C 31.7 % LV Ejection Fraction 4C AL 28.2 % M-MODE Aortic Root Diameter MM 3.5 cm LA Systolic Diameter MM 5.7 cm LA Ao Ratio MM 1.6 DOPPLER AV Peak Velocity 166.0 cm/s AV Peak Gradient 11.0 mmHg LVOT Peak Velocity 95.3 cm/s LVOT Peak Gradient 3.6 mmHg AV Area Cont Eq pk 2.6 cm Mitral E Point Velocity 46.9 cm/s Mitral A Point Velocity 49.9 cm/s Mitral E to A Ratio 0.9 LV E' Lateral Velocity 3.2 cm/s Mitral E to LV E' Lateral Ratio 14.8 LV E' Septal Velocity 3.7 cm/s Mitral E to LV E' Septal Ratio 12.7 TR Peak Velocity 197.0 cm/s TR Peak Gradient 16.0 mmHg Right Atrial Pressure 10.0 mmHg Pulmonary Artery Systolic Pressu 25.5 mmHg Right Ventricular Systolic Press 25.5 mmHg PV Peak Velocity 129.0 cm/s PV Peak Gradient 6.7 mmHg FINDINGS LEFT VENTRICLE Normal left ventricular size. Severe concentric left ventricular hypertrophy. The left ventricular systolic function is low normal with an estimated ejection fraction in the rang e of 50- 55%. RIGHT VENTRICLE Normal right ventricular size and systolic function. LEFT ATRIUM The left atrial size is mildly dilated. RIGHT ATRIUM The right atrial size is normal. ATRIAL SEPTUM Normal atrial septal thickness without atrial level shunting by limited color doppler interrogation. AORTA The aortic root and proximal ascending aorta are normal in size on limited imaging. MITRAL VALVE Structurally normal mitral valve. No mitral valve stenosis or regurgitation. AORTIC VALVE Trileaflet aortic valve. No aortic valve stenosis or regurgitation. TRICUSPID VALVE There is trace tricuspid valve regurgitation. The estimated pulmonary arterial pressure is 26 mmHg. PULMONARY VALVE No pulmonary valve regurgitation or stenosis. VESSELS The inferior vena cava is normal in size. PERICARDIUM No pericardial effusion. Mitchell Becerril MD, FACC (Electronically Signed) Final Date:20 December 2017 17:10
--- NOTE | 2017-12-20 17:28 | XR ---
EXAM DATE: 12/20/2017 5:23 PM EST AGE/SEX: 62 years / Male INDICATIONS: . Dyspnea. CLINICAL DATA: This is the patient's initial encounter. Patient reports that signs and symptoms have been present for 1 day and indicates a pain score of 0/10. MEDICAL/SURGICAL HISTORY: . Chronic obstructive pulmonary disease. Myocardial infarction. None . COMPARISON: [facility] [place], CHEST 1V SINGLE AP, 12/20/2017. . FINDINGS: Interstitial vascular prominence has developed throughout both lungs. There is minimal atelectasis in the left midlung. Heart is mildly enlarged. Osseous structures are intact. CONCLUSION: Increasing interstitial vascular prominence which may represent developing congestion. Mild left midlung atelectasis. No other acute abnormalities noted. Electronically signed by: Baron Carranza MD 12/20/2017 5:26 PM EST
[2017-12-20 17:37] LABS: Troponin I 1.91 ng/mL (0.02-0.05)
[2017-12-20 17:48] LABS: Magnesium 2.1 mg/dL (1.5-2.5)
--- NOTE | 2017-12-20 18:25 | ECG ---
Date Performed: 12/20/2017 Time Performed: 08:59:58 PTAGE: 62 years EKG: Sinus rhythm LEFT ATRIAL ENLARGEMENT MARKED LEFT AXIS DEVIATION POSSIBLE RIGHT VENTRICULAR CONDUCTION DELAY LEFT VENTRICULAR HYPERTROPHY AND ST-T CHANGE POSSIBLE SEPTAL MYOCARDIAL INFARCTION ABNORMAL ECG NO PREVIOUS TRACING DOCTOR: Paul Dugan Interpretating Date/Time 12/20/2017 18:24:22
[2017-12-20] MEDS ORDERED: Sodium Chloride 0.9% 2 ML Flush PRN IV.FLUSH (22:46)
[2017-12-20] MEDS: Senna/Docusate Sodium 8.6/50 MG Tablet PO SCH (23:09)
[2017-12-21 01:06] LABS: Amphetamine Screen,Urine Neg (Neg); Barbiturate Screen,Urine Neg (Neg); Cannabinoid Screen,Urine Neg (Neg); Cocaine Screen,Urine Pos (Neg)
[2017-12-21 01:14] LABS: Opiate Screen,Urine Neg (Neg)
[2017-12-21 05:51] LABS: Baso % (Auto) 0.6 % (0.0-2.0); Eos # (Auto) 0.2 th/mm3 (0.0-0.4); Eos % (Auto) 3.5 % (0.0-4.0); Hematocrit 47.8 % (39.0-51.0); Hemoglobin 15.2 gm/dL (13.0-17.0); Lymph # (Auto) 1.6 th/mm3 (1.0-4.8); Lymph % (Auto) 31.3 % (9.0-44.0); Mean Corpuscular HGB Conc 31.8 % (32.0-36.0); Mean Corpuscular Hemoglobin 26.9 pg (27.0-34.0); Mean Corpuscular Volume 84.7 fL (80.0-100.0); Mean Platelet Volume 8.8 fL (7.0-11.0); Mono # (Auto) 0.6 th/mm3 (0.0-0.9); Mono % (Auto) 10.8 % (0.0-8.0); Neut # (Auto) 2.8 th/mm3 (1.8-7.7); Neut % (Auto) 53.8 % (16.0-70.0); Platelet Count 233 th/mm3 (150-450); Red Blood Count 5.65 mil/mm3 (4.50-5.90); Red Cell Distribution Width 14.2 % (11.6-17.2); White Blood Count 5.2 th/mm3 (4.0-11.0)
[2017-12-21 06:15] LABS: Anion Gap 7 meq/L (5-15); Blood Urea Nitrogen 10 mg/dL (7-18); Carbon Dioxide 30.3 meq/L (21.0-32.0); Chloride 107 meq/L (98-107); Potassium 3.4 meq/L (3.5-5.1); Sodium 144 meq/L (136-145)
[2017-12-21 06:16] LABS: Calcium 8.8 mg/dL (8.5-10.1); Glomerular Filtration Rate Greater Than 89 mL/min (>89); Glucose,Random 87 mg/dL (74-106)
[2017-12-21 06:26] LABS: Troponin I 1.77 ng/mL (0.02-0.05)
[2017-12-21] MEDS: LORazepam 1 MG Tablet PO SCH ×2 (06:40→08:23)
[2017-12-21] MEDS: Sodium Chloride 0.9% 2 ML Flush BID IV.FLUSH SCH ×2 (08:23→23:00)
[2017-12-21] MEDS: Lisinopril 10 MG Tablet PO SCH (08:23)
[2017-12-21] MEDS: Senna/Docusate Sodium 8.6/50 MG Tablet PO SCH ×2 (08:24→23:00)
--- NOTE | 2017-12-21 10:27 | ECG ---
Date Performed: 12/20/2017 Time Performed: 16:02:00 PTAGE: 62 years EKG: Sinus bradycardia. Prolonged QT interval Possible left atrial abnormality Left anterior fas cicular block QRS changes V3/V4 may be due to LVH but cannot rule out anterior infarct LVH with secon selma repolarization abnormality Inferior/lateral ST-T changes are probably due to ventricular hypertr ophy Abnormal ECG NO PREVIOUS TRACING DOCTOR: Henrique Garrett Interpretating Date/Time 12/21/2017 10:25:58
--- NOTE | 2017-12-21 10:28 | ECG ---
Date Performed: 12/20/2017 Time Performed: 15:22:54 PTAGE: 62 years EKG: SINUS BRADYCARDIA LEFT ATRIAL ENLARGEMENT POSSIBLE RIGHT VENTRICULAR CONDUCTION DELAY LEFT ANTERIOR FASCICULAR BLOCK LEFT VENTRICULAR HYPERTROPHY AND ST-T CHANGE ABNORMAL ECG Since the PREVIOUS TRACING , no significant change noted PREVIOUS TRACIN12/20/2017 08.59 DOCTOR: Henrique Garrett Interpretating Date/Time 12/25/2017 07:03:17
--- NOTE | 2017-12-21 11:39 | P.PNCA ---
Subjective Interval history: Patient very drowsy at this time. He does wake up and respond appropriately. He currently denies any CP, pressure, palpitations, dizziness, edema or SOB. Medications and Allergies Allergies Allergy/AdvReac Type Severity Reaction Status Date / Time No Known Allergies Allergy Verified 12/20/17 09:02 Home Medications Medication Instructions Recorded Confirmed Type atorvastatin 40 mg PO DAILY 12/20/17 12/20/17 History lisinopril 10 mg PO DAILY 12/20/17 12/20/17 History nifedipine 60 mg PO DAILY 12/20/17 12/20/17 History quetiapine [Seroquel] 200 mg PO HS 12/20/17 12/20/17 History Active Medications: Active Medications Al Hydroxide/Mg Hydroxide (Milk Of Ketty Garay) 30 ml PO Q12H PRN PRN Reason: Mild Constipation Albuterol (Duoneb Neb (Jaswinder)) 1 ampul NEB Q4HR NEB [facility] Last Admin: 12/21/17 11:14 Dose: Not Given Aspirin (Aspirin Chew) 81 mg PO DAILY [facility] Last Admin: 12/21/17 08:23 Dose: 81 mg Atorvastatin Calcium (Lipitor) 80 mg PO DAILY [facility] Last Admin: 12/21/17 08:22 Dose: 80 mg Clonidine HCl (Catapres) 0.1 mg PO Q6H PRN PRN Reason: SEE LABEL COMMENTS Last Admin: 12/21/17 10:21 Dose: 0.1 mg Flumazenil (Romazecon Inj) 0.2 mg IV.PUSH Q1M PRN PRN Reason: OVERSEDATION Heparin Sodium/Dextrose (Heparin/D5w 25,000 U/250 Ml) 25,000 unit in 250 mls @ 0 mls/hr IV.CONT TITRATE PRN; Protocol PRN Reason: Per Protocol Last Titration: 12/21/17 06:46 Dose: 1,200 units/hr, 12 mls/hr Sodium Nitroprusside 50 mg/ (Dextrose) 250 mls @ 17.69 mls/hr IV.CONT TITRATE PRN; Protocol PRN Reason: Per Protocol Last Titration: 12/20/17 21:05 Dose: 0 mcg/kg/min, 0 mls/hr Lisinopril (Prinivil) 10 mg PO DAILY [facility] Last Admin: 12/21/17 08:23 Dose: 10 mg Lorazepam (Ativan) 1 mg PO Q6H [facility] Last Admin: 12/21/17 08:23 Dose: 1 mg Morphine Sulfate (Morphine Inj) 2 mg IV.PUSH Q4H PRN PRN Reason: PAIN SCALE 1 TO 10 Nifedipine (Procardia Xl) 60 mg PO DAILY [facility] Last Admin: 12/21/17 08:23 Dose: 60 mg Nitroglycerin (Nitrostat Sl) 0.4 mg SL Q4HR PRN PRN Reason: CHEST PAIN Potassium Chloride (K-Dur) 20 meq PO BID [facility] Last Admin: 12/21/17 08:23 Dose: 20 meq Senna/Docusate Sodium (Kiesha-Colace) 1 tab PO BID [facility] Last Admin: 12/21/17 08:24 Dose: Not Given Sennosides (Senokot) 17.2 mg PO Q12H PRN PRN Reason: Moderate Constipation Sodium Chloride (Ns Flush) 2 ml IV.FLUSH BID [facility] Last Admin: 12/21/17 08:23 Dose: 2 ml Sodium Chloride (Ns Flush) 2 ml IV.FLUSH PRN PRN PRN Reason: FLUSH AFTER USING IV ACCESS Ticagrelor (Brilinta) 90 mg PO BID [facility] Physical Exam Vital signs: Vital Signs 12/20/17 14:01 12/20/17 14:58 12/20/17 15:32 Temperature Pulse Rate 64 65 Respiratory Rate 18 16 Blood Pressure 207/104 H 176/128 H Pulse Oximetry 98 97 98 12/20/17 15:45 12/20/17 16:39 12/20/17 18:30 Temperature 97.1 F L 97.6 F Pulse Rate 51 L 51 L 69 Respiratory Rate 20 29 H Blood Pressure 201/130 H 166/91 H Pulse Oximetry 100 97 12/20/17 19:00 12/20/17 20:00 12/21/17 00:00 Temperature 98.8 F 98.0 F Pulse Rate 70 62 62 Respiratory Rate 28 H 26 H 25 H Blood Pressure 124/82 138/63 146/97 H Pulse Oximetry 96 98 12/21/17 00:48 12/21/17 04:00 12/21/17 05:02 Temperature 97.8 F Pulse Rate 61 55 L 59 L Respiratory Rate 18 27 H 18 Blood Pressure 119/79 Pulse Oximetry 12/21/17 08:00 12/21/17 08:07 12/21/17 09:00 Temperature 98.1 F Pulse Rate 63 63 63 Respiratory Rate 33 H 16 Blood Pressure 155/102 H Pulse Oximetry 96 Intake & Output 12/20/17 12/21/17 12/21/17 18:59 06:59 18:59 Intake Total 480 / 480 Output Total 800 / 800 Balance -320 / -320 Weight 117.934 kg 118.5 kg Intake: Oral 480 / 480 Output: Urine 800 / 800 Other: # Voids 4 - Constitutional no acute distress - Routine HEENT Exam Head: Present: normocephalic Eye: Present: PERRL ENT: Present: mucous membranes moist - Routine Neck Exam Present: full ROM - Routine Respiratory Exam Present: CTA bilaterally - Routine Cardiovascular Exam Present: S1, S2. Absent: murmur, gallop, rubs - Routine Abdominal Exam Present: normoactive bowel sounds - Routine Extremities Exam Present: full ROM, pulses intact, normal capillary refill. Absent: cyanosis, clubbing, edema - Routine Skin Exam Present: intact - Routine Neurological Exam Present: oriented X3 - Detailed Neurological Exam: Coma Scale Eye Opening: Spontaneous Verbal Response: Oriented Motor Response: Extension Amor Coma Scale Total: 11 - Routine Psychiatric Exam Present: normal affect Results 12/21/17 04:19 12/21/17 04:19 Cardiac Enzymes 12/20/17 12/20/17 12/21/17 Range/Units 09:15 16:27 04:19 AST 26 (15-37) U/L Troponin I 1.79 H* 1.91 H* 1.77 H* (0.02-0.05) ng/mL Coagulation 12/20/17 12/20/17 12/20/17 Range/Units 11:10 16:27 20:45 PT 11.0 (9.8-11.6) sec APTT 31.0 35.2 H 36.0 H (23.4-31.7) sec 12/21/17 Range/Units 04:19 PT (9.8-11.6) sec APTT 39.2 H (23.4-31.7) sec CBC 12/20/17 12/21/17 Range/Units 09:15 04:19 WBC 6.0 5.2 (4.0-11.0) th/mm3 RBC 5.56 5.65 (4.50-5.90) mil/mm3 Hgb 15.3 15.2 (13.0-17.0) gm/dL Hct 46.7 47.8 (39.0-51.0) % Plt Count 249 233 (150-450) th/mm3 Neut # (Auto) 3.5 2.8 (1.8-7.7) th/mm3 Lymph # (Auto) 1.5 1.6 (1.0-4.8) th/mm3 [place] # (Auto) 0.6 0.6 (0.0-0.9) th/mm3 Eos # (Auto) 0.2 0.2 (0.0-0.4) th/mm3 Baso # (Auto) 0.1 0.0 (0.0-0.2) th/mm3 Comprehensive Metabolic Panel 12/20/17 12/21/17 Range/Units 09:15 04:19 Sodium 143 144 (136-145) meq/L Potassium 4.0 3.4 L (3.5-5.1) meq/L Chloride 108 H 107 (98-107) meq/L Carbon Dioxide 29.4 30.3 (21.0-32.0) meq/L BUN 9 10 (7-18) mg/dL Creatinine 1.09 0.98 (0.60-1.30) mg/dL Calcium 8.5 8.8 (8.5-10.1) mg/dL AST 26 (15-37) U/L ALT 27 (12-78) U/L Alkaline Phosphatase 79 (45-117) U/L Total Protein 7.0 (6.4-8.2) g/dL Albumin 3.2 L (3.4-5.0) g/dL Intake and Output 12/20/17 12/21/17 12/21/17 22:59 06:59 14:59 Intake Total 480 / 480 Output Total 800 / 800 Balance -320 / -320 Intake: Oral 480 / 480 Output: Urine 800 / 800 Other: # Voids 4 Weight 118.5 kg - Imaging and Cardiology Imaging: Impressions Chest X-Ray 12/20/17 09:03 CONCLUSION: Negative examination. Chest X-Ray 12/20/17 16:17 CONCLUSION: Increasing interstitial vascular prominence which may represent developing congestion. Mild left midlung atelectasis. No other acute abnormalities noted. Assessment and Plan - Assessment (1) Hypertension Code(s): I10 - Essential (primary) hypertension Status: Chronic (2) Non-ST elevated myocardial infarction (non-STEMI) Code(s): I21.4 - Non-ST elevation (NSTEMI) myocardial infarction Status: Acute - Plan No new cardiac events noted, we will continue to monitor on telemetry. We will continue aggressive cardiac risk factor modification and medical management. Discussed with patient the importance of stopping his cocaine use. May transfer patient to step down from a cardiac standpoint. We will continue to monitor him during his hospitalization. The patient was seen and evaluated by Dr. Becerril who participated in care, management and decision making. - Attending Attestation Patient seen and examined. I reviewed and agree with the evaluation and plan as presented. Continue medical management. He needs to quit using cocaine. Transfer to floor with tele.
[2017-12-21] MEDS: Heparin Drip 25,000 UNIT/250 ML BAG IV.CONT PRN (13:33)
--- NOTE | 2017-12-21 13:37 | P.PNFP ---
Addendum entered and electronically signed by Jai Coronel MD, R3 15:43: The patient was re-evaluated this afternoon ~14:30. His mentation is noted to be much improved from this AM. He is more alert, remains oriented x 3. Answers all questions and follows commands appropriately. Neuro exam is reassuring, without focal deficit. The patient was seen ambulating within his room without issues. Tolerated lunch without issues. The patient will step down from the ICU , transfer to [facility]. Will continue to monitor neuro status, with low threshold to workup if having new focal neuro deficit or altered mental status. Will hold any sedating medications at this time. Original Note: Subjective Interval history: Patient seen and examined this AM. Patient noted to be very drowsy. He is able to wake up for short periods of time, is alert and oriented x 3 and answer all questions and follows all commands. No focal neuro deficit is noted. He specifically denied CP, dyspnea, confusion, weakness. Remains afebrile. BPs overnight ranging 110s-150s/70s-100s. At least 800 cc UOP noted. <Jai Coronel - 12/21/17 13:37> Results - Labs Result diagrams: 12/21/17 04:19 12/21/17 04:19 <Marc Wong - 12/21/17 22:20> Abnormal lab results 12/20/17 12/21/17 12/21/17 Range/Units 23:30 04:19 04:19 MCH 26.9 L (27.0-34.0) pg MCHC 31.8 L (32.0-36.0) % Adair % (Auto) 10.8 H (0.0-8.0) % APTT (23.4-31.7) sec Potassium 3.4 L (3.5-5.1) meq/L Troponin I 1.77 H* (0.02-0.05) ng/mL Urine Cocaine Screen Pos H (Neg) 12/21/17 12/21/17 12/21/17 Range/Units 04:19 12:34 19:32 MCH (27.0-34.0) pg MCHC (32.0-36.0) % Adair % (Auto) (0.0-8.0) % APTT 39.2 H 36.1 H 33.3 H (23.4-31.7) sec Potassium (3.5-5.1) meq/L Troponin I (0.02-0.05) ng/mL Urine Cocaine Screen (Neg) Short CBC 12/21/17 Range/Units 04:19 WBC 5.2 (4.0-11.0) th/mm3 Hgb 15.2 (13.0-17.0) gm/dL Hct 47.8 (39.0-51.0) % Plt Count 233 (150-450) th/mm3 BMP 12/21/17 04:19 Sodium 144 Potassium 3.4 L Chloride 107 Carbon Dioxide 30.3 BUN 10 Creatinine 0.98 Calcium 8.8 Cardiac Enzymes 12/21/17 Range/Units 04:19 Troponin I 1.77 H* (0.02-0.05) ng/mL <Marc Wong L - 12/21/17 22:20> Abnormal lab results 12/20/17 12/20/17 12/20/17 Range/Units 16:17 16:27 16:27 MCH (27.0-34.0) pg MCHC (32.0-36.0) % Adair % (Auto) (0.0-8.0) % APTT 35.2 H (23.4-31.7) sec ABG pH 7.47 H (7.380-7.420) ABG HCO3 28 H (22-26) mmol/L ABG O2 Content 21.4 H (12.0-20.0) Vol % ABG Base Excess 4.6 H (-2-2) mmol/L Potassium (3.5-5.1) meq/L Troponin I 1.91 H* (0.02-0.05) ng/mL Urine Cocaine Screen (Neg) 12/20/17 12/20/17 12/21/17 Range/Units 20:45 23:30 04:19 MCH 26.9 L (27.0-34.0) pg MCHC 31.8 L (32.0-36.0) % Adair % (Auto) 10.8 H (0.0-8.0) % APTT 36.0 H (23.4-31.7) sec ABG pH (7.380-7.420) ABG HCO3 (22-26) mmol/L ABG O2 Content (12.0-20.0) Vol % ABG Base Excess (-2-2) mmol/L Potassium (3.5-5.1) meq/L Troponin I (0.02-0.05) ng/mL Urine Cocaine Screen Pos H (Neg) 12/21/17 12/21/17 Range/Units 04:19 04:19 MCH (27.0-34.0) pg MCHC (32.0-36.0) % Adair % (Auto) (0.0-8.0) % APTT 39.2 H (23.4-31.7) sec ABG pH (7.380-7.420) ABG HCO3 (22-26) mmol/L ABG O2 Content (12.0-20.0) Vol % ABG Base Excess (-2-2) mmol/L Potassium 3.4 L (3.5-5.1) meq/L Troponin I 1.77 H* (0.02-0.05) ng/mL Urine Cocaine Screen (Neg) Short CBC 12/21/17 Range/Units 04:19 WBC 5.2 (4.0-11.0) th/mm3 Hgb 15.2 (13.0-17.0) gm/dL Hct 47.8 (39.0-51.0) % Plt Count 233 (150-450) th/mm3 BMP 12/21/17 04:19 Sodium 144 Potassium 3.4 L Chloride 107 Carbon Dioxide 30.3 BUN 10 Creatinine 0.98 Calcium 8.8 Cardiac Enzymes 12/20/17 12/21/17 Range/Units 16:27 04:19 Troponin I 1.91 H* 1.77 H* (0.02-0.05) ng/mL <Jai Coronel - 12/21/17 13:37> - Imaging Impressions Chest X-Ray 12/20/17 16:17 CONCLUSION: Increasing interstitial vascular prominence which may represent developing congestion. Mild left midlung atelectasis. No other acute abnormalities noted. <Jai Coronel - 12/21/17 13:37> Physical Exam Vital signs: Vital Signs 12/21/17 00:00 12/21/17 00:48 12/21/17 04:00 Temperature 98.0 F 97.8 F Pulse Rate 62 61 55 L Respiratory Rate 25 H 18 27 H Blood Pressure 146/97 H 119/79 Pulse Oximetry 12/21/17 05:02 12/21/17 08:00 12/21/17 08:07 Temperature 98.1 F Pulse Rate 59 L 63 63 Respiratory Rate 18 33 H 16 Blood Pressure 155/102 H Pulse Oximetry 96 12/21/17 09:00 12/21/17 12:00 12/21/17 15:39 Temperature 98.6 F Pulse Rate 63 63 75 Respiratory Rate 30 H 16 Blood Pressure 133/75 Pulse Oximetry 95 12/21/17 16:00 12/21/17 17:00 12/21/17 18:00 Temperature 98.6 F Pulse Rate 70 82 60 Respiratory Rate 18 Blood Pressure 158/70 H Pulse Oximetry 96 12/21/17 19:00 Temperature Pulse Rate 84 Respiratory Rate 20 Blood Pressure Pulse Oximetry Intake & Output 12/21/17 12/21/17 12/22/17 06:59 18:59 06:59 Intake Total 480 / 480 250 / 250 Output Total 800 / 800 Balance -320 / -320 250 / 250 Weight 118.5 kg Intake: IV 250 / 250 Heparin/D5W 25,000 U/250 mL 25, 250 / 250 000 unit In 250 ml @ Per Protocol IV.CONT TITRATE PRN Rx #:[id number] Oral 480 / 480 Output: Urine 800 / 800 Other: # Voids 4 <Marc Wong L - 12/21/17 22:20> Vital Signs 12/20/17 14:01 12/20/17 14:58 12/20/17 15:32 Temperature Pulse Rate 64 65 Respiratory Rate 18 16 Blood Pressure 207/104 H 176/128 H Pulse Oximetry 98 97 98 12/20/17 15:45 12/20/17 16:39 12/20/17 18:30 Temperature 97.1 F L 97.6 F Pulse Rate 51 L 51 L 69 Respiratory Rate 20 29 H Blood Pressure 201/130 H 166/91 H Pulse Oximetry 100 97 12/20/17 19:00 12/20/17 20:00 12/21/17 00:00 Temperature 98.8 F 98.0 F Pulse Rate 70 62 62 Respiratory Rate 28 H 26 H 25 H Blood Pressure 124/82 138/63 146/97 H Pulse Oximetry 96 98 12/21/17 00:48 12/21/17 04:00 12/21/17 05:02 Temperature 97.8 F Pulse Rate 61 55 L 59 L Respiratory Rate 18 27 H 18 Blood Pressure 119/79 Pulse Oximetry 12/21/17 08:00 12/21/17 08:07 12/21/17 09:00 Temperature 98.1 F Pulse Rate 63 63 63 Respiratory Rate 33 H 16 Blood Pressure 155/102 H Pulse Oximetry 96 Intake & Output 12/20/17 12/21/17 12/21/17 18:59 06:59 18:59 Intake Total 480 / 480 Output Total 800 / 800 Balance -320 / -320 Weight 117.934 kg 118.5 kg Intake: Oral 480 / 480 Output: Urine 800 / 800 Other: # Voids 4 <Jai Coronel - 12/21/17 13:37> Narrative: GENERAL: NAD. No respiratory distress. Patient is drowsy, is able to wake up and respond appropriately to questions and commands. SKIN: Warm and dry. HEAD: Atraumatic. Normocephalic. EYES: PERRL. No scleral icterus. No injection or drainage. ENT: No nasal bleeding or discharge. Mucous membranes moist. NECK: Supple. Trachea midline. No JVD. CARDIOVASCULAR: Bradycardic. Regular rhythm. No m/r/g auscultated RESPIRATORY: No accessory muscle use. Clear to auscultation anteriorly. Breath sounds equal bilaterally. GASTROINTESTINAL: Abdomen soft, nontender, nondistended. Hepatic and splenic margins not palpable. MUSCULOSKELETAL: Extremities without edema. No obvious deformities. NEUROLOGICAL: AOx3. Cranial nerves attempted to be tested but limited due to patient's clinical status, no cranial nerve deficits are noted. Moving all extremities. Turbo Operator strength 5/5 bilaterally. Sensation intact to light touch throughout. No resting tremor. <Jai Coronel - 12/21/17 13:37> Assessment and Plan - Assessment (1) Non-ST elevated myocardial infarction (non-STEMI) Code(s): I21.4 - Non-ST elevation (NSTEMI) myocardial infarction Status: Acute (2) Drowsiness Code(s): R40.0 - Somnolence Status: Acute (3) Shortness of breath Code(s): R06.02 - Shortness of breath Status: Resolved (4) Hypertension Code(s): I10 - Essential (primary) hypertension Status: Chronic (5) Bipolar 1 disorder Code(s): F31.9 - Bipolar disorder, unspecified Status: Chronic (6) Substance abuse Code(s): F19.10 - Other psychoactive substance abuse, uncomplicated Status: Chronic (7) Nutrition, metabolism, and development symptoms Code(s): R63.8 - Other symptoms and signs concerning food and fluid intake Status: Acute <Marc Wong - 12/21/17 22:20> (1) Non-ST elevated myocardial infarction (non-STEMI) Code(s): I21.4 - Non-ST elevation (NSTEMI) myocardial infarction Status: Acute Plan: EKG on admission showed LVH, possible septal old RI, ST depressions in aVL, V3 through V6. Repeat EKG showed no changes. Cardiology consulted, appreciate recommendations, continue aggressive cardiac risk factor modification and medical management at this time -Heparin drip, aspirin 81 mg daily, brilinta 90 mg bid -Morphine 2 mg every 4 as needed -Nitroglycerin sublingual 0.4 every 4 hours as needed chest pain -No beta pete given this being a cocaine-induced NSTEMI -Continuous pulse ox -Continue atorvastatin 80 mg po daily -2D echo showing severe concentric LVH, LV systolic function is low-normal with eEF of 50-55%, trace TVR -Will continue medical management and monitoring at this time (2) Drowsiness Code(s): R40.0 - Somnolence Status: Acute Plan: Patient noted to be very drowsy this AM, remained AOx3, neuro exam without acute concerns and no focal neuro deficit is seen Consider likely due to medication adverse effect, will discontinue lorazepam Plan to re-evaluated patient this afternoon, if remaining drowsy will proceed with more aggressive workup, consider electrolyte abnormality, acidosis, hypercarbia or hypoxemia, RI, hypoglycemia, other pulmonary cause (3) Shortness of breath Code(s): R06.02 - Shortness of breath Status: Resolved Plan: Improved from admission -Continue duonebs q4h -Continuous pulse ox, supplemental oxygen if needed to maintain O2 sats > 92% ABG pH 7.47 PCO2 39 P02 110 HC03 28 (4) Hypertension Code(s): I10 - Essential (primary) hypertension Status: Chronic Plan: Continue home lisinopril 10 mg daily and nifedipine 60 mg daily Clonidine 0.1 mg po q6h prn Continue to monitor vitals q4h (5) Bipolar 1 disorder Code(s): F31.9 - Bipolar disorder, unspecified Status: Chronic Plan: Takes Seroquel 200 mg at home Will hold at this time due to increased QT interval (6) Substance abuse Code(s): F19.10 - Other psychoactive substance abuse, uncomplicated Status: Chronic Plan: Known alcohol, cocaine, and marijuana use UDS positive for cocaine Case management referral to assist with substance abuse discharge care plan (7) Nutrition, metabolism, and development symptoms Code(s): R63.8 - Other symptoms and signs concerning food and fluid intake Status: Acute Plan: Diet: Heart healthy Electrolytes: continue to monitor and replete if needed DVT ppx: Heparin <Jai Coronel - 12/21/17 13:37> - Assessment and Plan 62 year old male with PMH significant for drug abuse (alcohol, cocaine, THC), CAD, HTN, bipolar, PTSD admitted with an NSTEMI. <Jai Coronel - 12/21/17 13:39> - Attending Attestation The exam, history, and the medical decision-making described in the above note were completed with the assistance of the resident physician. I reviewed and agree with the findings presented. I attest that I had a risk-zo-nath encounter with the patient on the same day, and personally performed and documented my assessment and findings in the medical record. Patient with cocaine induced NSTEMI. Currently treated with heparin drip, aspirin, ticagrelor , statin. Altered mental status this morning, but on repeat examination in the afternoon he is much more alert and without any focal neurological findings. I was present for both the morning and afternoon examination today. <Marc Wong - 12/21/17 22:20>
[2017-12-21] MEDS ORDERED: Zolpidem Tartrate 5 MG Tablet PO ONE (22:24)
[2017-12-22] MEDS ORDERED: Heparin 10,000 UNITS/10 ML Vial (for IV use) IV.PUSH PRN ×4 (00:22→06:09)
[2017-12-22 03:38] VITALS: BP 144/72; TEMP 98.6
[2017-12-22 06:24] LABS: Baso % (Auto) 0.5 % (0.0-2.0); Eos # (Auto) 0.1 th/mm3 (0.0-0.4); Hematocrit 48.6 % (39.0-51.0); Hemoglobin 15.6 gm/dL (13.0-17.0); Lymph # (Auto) 1.3 th/mm3 (1.0-4.8); Lymph % (Auto) 21.7 % (9.0-44.0); Mean Corpuscular HGB Conc 32.2 % (32.0-36.0); Mean Corpuscular Volume 84.1 fL (80.0-100.0); Mean Platelet Volume 8.6 fL (7.0-11.0); Mono # (Auto) 0.5 th/mm3 (0.0-0.9); Mono % (Auto) 8.4 % (0.0-8.0); Neut # (Auto) 4.1 th/mm3 (1.8-7.7); Neut % (Auto) 67.4 % (16.0-70.0); Platelet Count 235 th/mm3 (150-450); Red Blood Count 5.77 mil/mm3 (4.50-5.90); White Blood Count 6.1 th/mm3 (4.0-11.0)
[2017-12-22 06:53] LABS: Alanine Aminotransferase 30 U/L (12-78); Albumin 3.1 g/dL (3.4-5.0); Anion Gap 9 meq/L (5-15); Aspartate Aminotransferase 24 U/L (15-37); Blood Urea Nitrogen 12 mg/dL (7-18); Carbon Dioxide 28.5 meq/L (21.0-32.0); Chloride 106 meq/L (98-107); Glomerular Filtration Rate Greater Than 89 mL/min (>89); Glucose,Random 144 mg/dL (74-106); Potassium 3.3 meq/L (3.5-5.1); Sodium 143 meq/L (136-145)
[2017-12-22 06:56] LABS: Alkaline Phosphatase 78 U/L (45-117); Total Protein 6.7 g/dL (6.4-8.2)
[2017-12-22 10:59] VITALS: PULSE 67; RESP 20; O2SAT 98
== END 2017-12-22 09:04 | disposition left against medical advice (07) ==
LOC: NEPC 08:51 → NEDA 12:39 → N04 15:43 → HIMC 18:06 → HCIS 12-21 15:32
PROVIDERS: ADMIT Family Medicine; ATTEND Family Medicine